=== PATIENT | female | born 1975 | race Caucasian/White ===

== ENCOUNTER → 2017-03-23 | Outpatient (CLI) | payer OTHER ==
[~2017-03-23] VITALS: Ht 152.4 cm; Wt 68.0 kg
[~2017-03-23] MED LIST: CATAFLAM50 MG PO; FENOFIBRATE160 MG PO; FLONASE16 GM NS; GILTUSS TR TAB1 EACH PO; INTESTINEX680 MG PO; LISINOPRIL-HCT1 EAC2 PO; LISINOPRIL-HCTZ1 T13; LISINOPRIL-HCTZ1 T13 PO; LISINOPRIL10 MG; PEPCID20 MG PO; SINGULAIR10 MG; SYNTHROID112 MCG PO; SYNTHROID125 MCG; SYNTHROID125 MCG PO; SYNTHROID50 MCG PO; URETRON DS1 TAB PO; VASOTEC10 MG NGT; VOLTAREM 50 MG PO; ZITHROMAX TRI-500 MG PO; ZYRTEC10 MG PO
== END | disposition home or self-care (01) ==
LOC: PPHC 14:55
DX: R51 Headache (principal)

== ENCOUNTER → 2017-05-30 | Outpatient (CLI) | payer OTHER | END | disposition home or self-care (01) | LOC: PPHC 15:16 | DX: Z76.0 Encounter for issue of repeat prescription (principal); Z00.8 Encounter for other general examination ==

== ENCOUNTER 2017-05-31 06:33 | Outpatient (CLI) | payer OTHER | END 2017-05-31 06:41 | disposition home or self-care (01) | LOC: LAB 06:33 | DX: I10 Essential (primary) hypertension (principal); E78.5 Hyperlipidemia, unspecified; R42 Dizziness and giddiness ==

== ENCOUNTER 2017-07-16 18:22 | Emergency (ER) | payer OTHER ==
[~2017-07-16] VITALS: Ht 157.5 cm; Wt 72.6 kg
== END 2017-07-16 21:49 | disposition home or self-care (01) ==
LOC: ER 18:22
DX: B34.9 Viral infection, unspecified (principal)

== ENCOUNTER 2017-09-01 15:01 | Outpatient (CLI) | payer OTHER | END 2017-09-01 15:07 | disposition home or self-care (01) | LOC: MAMO-SONO 15:01 | DX: N60.11 Diffuse cystic mastopathy of right breast (principal); N60.12 Diffuse cystic mastopathy of left breast; Z12.31 Encounter for screening mammogram for malignant neoplasm of breast ==

== ENCOUNTER 2017-09-19 11:26 | Outpatient (CLI) | payer OTHER | END 2017-09-19 11:39 | disposition home or self-care (01) | LOC: SONOGRAMA 11:26 | DX: N60.11 Diffuse cystic mastopathy of right breast (principal); N60.12 Diffuse cystic mastopathy of left breast ==

== ENCOUNTER 2017-10-06 09:47 | Outpatient (CLI) | payer OTHER | END 2017-10-06 12:06 | disposition home or self-care (01) | LOC: SONOGRAMA 09:47 | DX: N60.11 Diffuse cystic mastopathy of right breast (principal); N60.21 Fibroadenosis of right breast ==

== ENCOUNTER → 2017-10-27 07:27 | Outpatient (CLI) | payer OTHER | END | disposition home or self-care (01) | LOC: LAB 07:27 | DX: E03.8 Other specified hypothyroidism (principal); Z13.1 Encounter for screening for diabetes mellitus; Z12.11 Encounter for screening for malignant neoplasm of colon; I10 Essential (primary) hypertension ==

== ENCOUNTER → 2017-10-30 07:41 | Outpatient (CLI) | payer OTHER | END | disposition home or self-care (01) | LOC: LAB 07:41 | DX: E03.8 Other specified hypothyroidism (principal); Z13.1 Encounter for screening for diabetes mellitus; Z12.11 Encounter for screening for malignant neoplasm of colon; I10 Essential (primary) hypertension ==

== ENCOUNTER 2018-01-27 08:01 | Outpatient (CLI) | payer OTHER | END 2018-01-27 08:08 | disposition home or self-care (01) | LOC: LAB 08:01 | DX: E11.9 Type 2 diabetes mellitus without complications (principal); D64.89 Other specified anemias ==

== ENCOUNTER 2018-01-27 08:27 | Outpatient (CLI) | payer OTHER | END 2018-01-27 08:37 | disposition home or self-care (01) | LOC: SONOGRAMA 08:27 → MAMO-SONO 09:15 | DX: E03.8 Other specified hypothyroidism (principal) ==

== ENCOUNTER 2018-02-08 12:09 | Outpatient (CLI) | payer OTHER | END 2018-02-08 12:15 | disposition home or self-care (01) | LOC: LAB 12:09 | DX: J11.1 Influenza due to unidentified influenza virus with other respiratory manifestations (principal); J06.9 Acute upper respiratory infection, unspecified ==

== ENCOUNTER → 2018-04-03 08:56 | Outpatient (CLI) | payer OTHER | END | disposition home or self-care (01) | LOC: LAB 06:57 | DX: E03.8 Other specified hypothyroidism (principal); I10 Essential (primary) hypertension; E11.9 Type 2 diabetes mellitus without complications ==

== ENCOUNTER 2018-08-09 09:26 | Outpatient (CLI) | payer OTHER | END 2018-08-09 12:53 | disposition home or self-care (01) | LOC: LAB 09:26 | DX: Z01.812 Encounter for preprocedural laboratory examination (principal) ==

== ENCOUNTER → 2018-09-26 | Outpatient (CLI) | payer OTHER | END | disposition home or self-care (01) | LOC: MAMO-SONO 11:36 | DX: Z12.31 Encounter for screening mammogram for malignant neoplasm of breast (principal); Z87.898 Personal history of other specified conditions; N60.11 Diffuse cystic mastopathy of right breast; N60.12 Diffuse cystic mastopathy of left breast; N64.4 Mastodynia ==

== ENCOUNTER 2018-10-04 12:11 | Outpatient (CLI) | payer OTHER | END 2018-10-04 12:21 | disposition home or self-care (01) | LOC: LAB 12:11 | DX: Z01.812 Encounter for preprocedural laboratory examination (principal) ==

== ENCOUNTER → 2018-10-08 11:37 | Outpatient (CLI) | payer OTHER | END | disposition home or self-care (01) | LOC: LAB 11:37 | DX: J11.1 Influenza due to unidentified influenza virus with other respiratory manifestations (principal); A43.8 Other forms of nocardiosis ==

== ENCOUNTER 2018-11-29 13:24 | Outpatient (CLI) | payer OTHER | END 2018-11-29 13:30 | disposition home or self-care (01) | LOC: LAB 13:24 | DX: Z01.812 Encounter for preprocedural laboratory examination (principal) ==

== ENCOUNTER 2018-12-21 12:25 | Outpatient (CLI) | payer OTHER | END 2018-12-21 14:52 | disposition home or self-care (01) | LOC: LAB 12:25 | DX: J11.1 Influenza due to unidentified influenza virus with other respiratory manifestations (principal) ==

== ENCOUNTER 2019-04-08 13:26 | Outpatient (CLI) | payer OTHER | END 2019-04-08 13:37 | disposition home or self-care (01) | LOC: LAB 13:26 | DX: J11.1 Influenza due to unidentified influenza virus with other respiratory manifestations (principal) ==

== ENCOUNTER 2019-04-19 07:38 | Outpatient (CLI) | payer OTHER | END 2019-04-19 09:37 | disposition home or self-care (01) | LOC: LAB 07:38 | DX: R10.84 Generalized abdominal pain (principal); Z00.00 Encounter for general adult medical examination without abnormal findings; E78.49 Other hyperlipidemia; E55.9 Vitamin D deficiency, unspecified; R42 Dizziness and giddiness; N39.0 Urinary tract infection, site not specified; I10 Essential (primary) hypertension; E03.8 Other specified hypothyroidism; E11.319 Type 2 diabetes mellitus with unspecified diabetic retinopathy without macular edema ==

== ENCOUNTER → 2019-04-25 14:58 | Outpatient (CLI) | payer OTHER | END | disposition home or self-care (01) | LOC: LAB 14:58 | DX: J11.1 Influenza due to unidentified influenza virus with other respiratory manifestations (principal); R05 Cough ==

== ENCOUNTER 2019-07-12 12:22 | Outpatient (CLI) | payer OTHER | END 2019-07-12 12:45 | disposition home or self-care (01) | LOC: LAB 12:22 | PROVIDERS: ATTEND General Practice | DX: R05 Cough (principal); J00 Acute nasopharyngitis [common cold]; E86.0 Dehydration; R50.9 Fever, unspecified; R19.5 Other fecal abnormalities ==

== ENCOUNTER 2019-07-19 07:26 | Outpatient (CLI) | payer OTHER | END 2019-07-19 15:27 | disposition home or self-care (01) | LOC: LAB 07:26 | PROVIDERS: ATTEND Specialist | DX: D50.8 Other iron deficiency anemias (principal); E03.8 Other specified hypothyroidism; E78.3 Hyperchylomicronemia ==

== ENCOUNTER 2019-07-23 14:15 | Outpatient (CLI) | payer OTHER | END 2019-07-23 14:16 | disposition home or self-care (01) | LOC: MAMO-SONO 14:15 | PROVIDERS: ATTEND Specialist | DX: Z12.31 Encounter for screening mammogram for malignant neoplasm of breast (principal); N60.11 Diffuse cystic mastopathy of right breast; N60.12 Diffuse cystic mastopathy of left breast ==

== ENCOUNTER 2019-09-01 03:24 | Emergency (ER) | payer OTHER ==
[~2019-09-01] VITALS: Ht 157.5 cm; Wt 71.2 kg
[2019-09-01] MEDS ORDERED: ZITHROMAX500 MG PO (07:21)
[2019-09-01] MEDS ORDERED: IBU600 MG PO (07:21)
[2019-09-01] MEDS ORDERED: PEPCID AC20 MG PO (07:21)
== END 2019-09-01 08:15 | disposition home or self-care (01) ==
LOC: ER 03:24
DX: J35.01 Chronic tonsillitis (principal); D50.9 Iron deficiency anemia, unspecified

== ENCOUNTER 2019-10-02 12:20 | Outpatient (CLI) | payer OTHER ==
[~2019-10-02 12:20] MED LIST changes: +IBU600 MG PO; +PEPCID AC20 MG PO; +ZITHROMAX500 MG PO
== END 2019-10-02 15:58 | disposition home or self-care (01) ==
LOC: LAB 12:20
DX: Z01.812 Encounter for preprocedural laboratory examination (principal)

== ENCOUNTER → 2019-10-30 07:14 | Outpatient (CLI) | payer OTHER | END | disposition home or self-care (01) | LOC: LAB 07:14 | PROVIDERS: ATTEND Internal Medicine | DX: E03.8 Other specified hypothyroidism (principal); I10 Essential (primary) hypertension; M54.5 Low back pain; Z01.810 Encounter for preprocedural cardiovascular examination; E78.89 Other lipoprotein metabolism disorders; E11.51 Type 2 diabetes mellitus with diabetic peripheral angiopathy without gangrene; E55.9 Vitamin D deficiency, unspecified; E66.8 Other obesity; M89.8X8 Other specified disorders of bone, other site ==

== ENCOUNTER 2019-10-30 10:50 | Outpatient (CLI) | payer OTHER | END 2019-10-30 13:33 | disposition home or self-care (01) | LOC: SONOGRAMA 10:50 | PROVIDERS: ATTEND Internal Medicine | DX: E03.8 Other specified hypothyroidism (principal); I10 Essential (primary) hypertension; M54.5 Low back pain; Z01.810 Encounter for preprocedural cardiovascular examination; E78.89 Other lipoprotein metabolism disorders; E11.51 Type 2 diabetes mellitus with diabetic peripheral angiopathy without gangrene; E55.9 Vitamin D deficiency, unspecified; E11.9 Type 2 diabetes mellitus without complications; E66.8 Other obesity; M89.8X8 Other specified disorders of bone, other site ==

== ENCOUNTER 2019-11-01 20:00 | Outpatient (CLI) | payer OTHER | END 2019-11-01 20:01 | disposition home or self-care (01) | LOC: PPH VACUNA 20:00 | DX: Z23 Encounter for immunization (principal) ==

== ENCOUNTER 2020-03-03 07:43 | Outpatient (CLI) | payer OTHER | END 2020-03-03 07:49 | disposition home or self-care (01) | LOC: LAB 07:43 | PROVIDERS: ATTEND Internal Medicine | DX: I10 Essential (primary) hypertension (principal); M54.5 Low back pain; E03.8 Other specified hypothyroidism; E78.89 Other lipoprotein metabolism disorders; E11.51 Type 2 diabetes mellitus with diabetic peripheral angiopathy without gangrene; E55.9 Vitamin D deficiency, unspecified; E66.8 Other obesity ==

== ENCOUNTER 2020-08-14 18:05 | Emergency (ER) | payer OTHER ==
[~2020-08-14] VITALS: Ht 157.5 cm; Wt 71.2 kg
[2020-08-14] MEDS ORDERED: SYNTHROID100 MCG (19:03)
[2020-08-14] MEDS ORDERED: GLIMEPIRIDE4 M1 (19:04)
[2020-08-14] MEDS ORDERED: IRON325 MG PO (22:32)
[2020-08-14] MEDS ORDERED: STOOL SOFTENER50 MG PO (22:32)
== END 2020-08-14 23:04 | disposition home or self-care (01) ==
LOC: ER 18:05
DX: D64.9 Anemia, unspecified (principal); R13.19 Other dysphagia; R51.9 Headache, unspecified

== ENCOUNTER 2020-09-22 09:24 | Outpatient (CLI) | payer OTHER ==
[~2020-09-22 09:24] MED LIST changes: +GLIMEPIRIDE4 M1; +IRON325 MG PO; +STOOL SOFTENER50 MG PO; +SYNTHROID100 MCG
== END 2020-09-22 12:03 | disposition home or self-care (01) ==
LOC: LAB 09:24
DX: D64.89 Other specified anemias (principal)

== ENCOUNTER 2020-09-23 12:15 | Outpatient (CLI) | payer OTHER | END 2020-09-23 12:16 | disposition home or self-care (01) | LOC: MAMO-SONO 12:15 | PROVIDERS: ATTEND Surgery | DX: N60.11 Diffuse cystic mastopathy of right breast (principal); N60.12 Diffuse cystic mastopathy of left breast ==

== ENCOUNTER 2020-10-09 10:18 | Outpatient (CLI) | payer OTHER | END 2020-10-09 10:23 | disposition home or self-care (01) | LOC: SONOGRAMA 10:18 | PROVIDERS: ATTEND Surgery | DX: D24.2 Benign neoplasm of left breast (principal); N60.11 Diffuse cystic mastopathy of right breast; N60.12 Diffuse cystic mastopathy of left breast ==

== ENCOUNTER 2020-12-25 08:00 | Outpatient (CLI) | payer OTHER | END 2020-12-25 08:30 | disposition home or self-care (01) | LOC: PPH VACUNA 08:00 | PROVIDERS: ATTEND Emergency Medicine Pediatric Emergency Medicine | DX: Z23 Encounter for immunization (principal) ==

== ENCOUNTER 2021-02-26 09:00 | Outpatient (CLI) | payer OTHER | END 2021-02-26 09:15 | disposition home or self-care (01) | LOC: PPH VACUNA 09:00 | PROVIDERS: ATTEND Emergency Medicine Pediatric Emergency Medicine | DX: Z23 Encounter for immunization (principal) ==

== ENCOUNTER 2021-05-10 10:05 | Outpatient (CLI) | payer OTHER | END 2021-05-10 10:07 | disposition home or self-care (01) | LOC: RAD 10:05 | PROVIDERS: ATTEND Internal Medicine Pulmonary Disease | DX: J45.20 Mild intermittent asthma, uncomplicated (principal) ==

== ENCOUNTER 2021-05-10 10:23 | Outpatient (CLI) | payer OTHER | END 2021-05-10 11:19 | disposition home or self-care (01) | LOC: LAB 10:23 | PROVIDERS: ATTEND Internal Medicine Pulmonary Disease | DX: Z03.818 Encounter for observation for suspected exposure to other biological agents ruled out (principal) ==

== ENCOUNTER 2021-06-04 15:34 | Emergency (ER) | payer OTHER ==
[~2021-06-04] VITALS: Ht 157.5 cm; Wt 72.6 kg
== END 2021-06-04 19:01 | disposition home or self-care (01) ==
LOC: ER 15:34
DX: O07.1 Delayed or excessive hemorrhage following failed attempted termination of pregnancy (principal)

== ENCOUNTER 2021-06-11 14:57 | Outpatient (CLI) | payer OTHER | END 2021-06-11 15:09 | disposition home or self-care (01) | LOC: SONOGRAMA 14:57 | PROVIDERS: ATTEND Surgery | DX: N60.11 Diffuse cystic mastopathy of right breast (principal); N60.12 Diffuse cystic mastopathy of left breast ==

== ENCOUNTER 2021-11-19 11:12 | Outpatient (CLI) | payer OTHER | END 2021-11-19 11:13 | disposition home or self-care (01) | LOC: PPH VACUNA 11:12 | PROVIDERS: ATTEND Emergency Medicine Pediatric Emergency Medicine | DX: Z23 Encounter for immunization (principal) ==

== ENCOUNTER → 2021-11-29 | Emergency (ER) | payer OTHER ==
[~2021-11-29] VITALS: Ht 157.5 cm; Wt 70.8 kg
== END | disposition home or self-care (01) ==
LOC: ER 09:36
DX: B34.8 Other viral infections of unspecified site (principal); Z20.828 Contact with and (suspected) exposure to other viral communicable diseases

== ENCOUNTER 2022-04-20 14:42 | Outpatient (CLI) | payer OTHER | END 2022-04-20 15:20 | disposition home or self-care (01) | LOC: SONOGRAMA 14:42 | PROVIDERS: ATTEND Specialist | DX: N92.0 Excessive and frequent menstruation with regular cycle (principal) ==

== ENCOUNTER 2022-05-17 10:39 | Outpatient (CLI) | payer OTHER | END 2022-05-17 10:53 | disposition home or self-care (01) | LOC: LAB 10:39 | PROVIDERS: ATTEND General Practice | DX: R05.8 Other specified cough (principal); R06.02 Shortness of breath; R50.9 Fever, unspecified; Z20.822 Contact with and (suspected) exposure to COVID-19 ==

== ENCOUNTER → 2022-06-30 06:34 | Outpatient (CLI) | payer OTHER | END | disposition home or self-care (01) | LOC: LAB 06:34 | PROVIDERS: ATTEND Internal Medicine Hematology & Oncology | DX: D50.0 Iron deficiency anemia secondary to blood loss (chronic) (principal); D50.8 Other iron deficiency anemias; K29.40 Chronic atrophic gastritis without bleeding; K90.0 Celiac disease; E03.8 Other specified hypothyroidism ==

== ENCOUNTER → 2022-07-01 06:50 | Outpatient (CLI) | payer OTHER | END | disposition home or self-care (01) | LOC: LAB 06:50 | PROVIDERS: ATTEND Internal Medicine Hematology & Oncology | DX: D50.0 Iron deficiency anemia secondary to blood loss (chronic) (principal); D50.8 Other iron deficiency anemias; K29.40 Chronic atrophic gastritis without bleeding; K90.0 Celiac disease ==

== ENCOUNTER 2022-07-21 08:54 | Outpatient (CLI) | payer OTHER | END 2022-07-21 09:00 | disposition home or self-care (01) | LOC: LAB 08:54 | PROVIDERS: ATTEND General Practice | DX: R05.9 Cough, unspecified (principal); R50.9 Fever, unspecified; R06.02 Shortness of breath; Z20.822 Contact with and (suspected) exposure to COVID-19 ==

== ENCOUNTER 2022-08-30 07:25 | Outpatient (CLI) | payer OTHER | END 2022-08-30 07:34 | disposition home or self-care (01) | LOC: LAB 07:25 | PROVIDERS: ATTEND Internal Medicine Hematology & Oncology | DX: D50.0 Iron deficiency anemia secondary to blood loss (chronic) (principal); E03.8 Other specified hypothyroidism ==

== ENCOUNTER → 2022-10-21 | Outpatient (CLI) | payer OTHER | END | disposition home or self-care (01) | LOC: PPH VACUNA 10-13 14:48 | PROVIDERS: ATTEND Emergency Medicine Pediatric Emergency Medicine | DX: Z23 Encounter for immunization (principal) ==

== ENCOUNTER → 2022-12-07 06:40 | Outpatient (CLI) | payer OTHER ==
[2022-12-07 08:06] LABS: HEMOGLOBIN 10.2 g/dL (12.0-15.00); MEAN CELL VOLUME 72.2 fL (80.00-100.00); MEAN CORPUSCULAR HEMOGLOBIN 22.9 pg (27.00-32.0); MEAN CORPUSCULAR HGB CONC 31.8 g/dl (32.0-36.0); PLATELET COUNT 322 K/uL (150-450); RED BLOOD COUNT 4.44 M/uL (4.00-6.00); RED CELL DISTRIBUTION WIDTH 17.6 % (11.5-14.5)
[2022-12-07 08:35] LABS: FERRITIN 8.6 NG/ML (8-252); FREE TRIODOTIRONINE 2.07 pg/ml (2.18-3.98); T4 FREE 1.16 NG/ML (0.76-1.46); TSH 2.93 uIU/mL (0.358-3.74)
== END | disposition home or self-care (01) ==
LOC: LAB 06:40
PROVIDERS: ATTEND Internal Medicine Hematology & Oncology
DX: D50.8 Other iron deficiency anemias (principal); E03.8 Other specified hypothyroidism

== ENCOUNTER 2022-12-07 07:15 | Outpatient (CLI) | payer OTHER | END 2022-12-07 07:17 | disposition home or self-care (01) | LOC: MAMO-SONO 07:15 | PROVIDERS: ATTEND Surgery | DX: Z12.31 Encounter for screening mammogram for malignant neoplasm of breast (principal); N60.11 Diffuse cystic mastopathy of right breast ==

== ENCOUNTER → 2023-01-25 08:24 | Outpatient (CLI) | payer OTHER ==
[2023-01-25 09:31] LABS: URINE APPEARANCE Clear; URINE BILIRRUBIN Negative (NEGATIVE); URINE BLOOD Negative; URINE COLOR Yellow; URINE LEUKOCYTE Negative; URINE NITRATE Negative; URINE PROTEIN Negative (NEGATIVE); URINE UROBILINOGEN 0.2 E.U./dl
[2023-01-25 09:37] LABS: URINE BACTERIA 191.3 uL (0.0-1933); URINE EPITHELIAL CELLS 13.5 uL (0.0-38.8); URINE WBC 5.7 uL (0.0-23.2)
[2023-01-25 09:38] LABS: HEMATOCRIT 32.8 % (36.0-45.00); HEMOGLOBIN 10.3 g/dL (12.0-15.00); MEAN CELL VOLUME 70.5 fL (80.00-100.00); MEAN CORPUSCULAR HEMOGLOBIN 22.2 pg (27.00-32.0); MEAN CORPUSCULAR HGB CONC 31.5 g/dl (32.0-36.0); PLATELET COUNT 284 K/uL (150-450); RED BLOOD COUNT 4.66 M/uL (4.00-6.00); RED CELL DISTRIBUTION WIDTH 16.6 % (11.5-14.5)
[2023-01-25 09:50] LABS: URINE GLUCOSE 100 MG/DL (NEGATIVE)
[2023-01-25 10:36] LABS: ALBUMIN 3.5 gm/dL (3.4-5.0); ALKALINE PHOSPHATASE 40 U/L (50-136); ALT/SGPT 28 U/L (12-78); ANION GAP 11 (10.0-20.0); AST/SGOT 26 U/L (15-37); BILIRUBIN TOTAL 0.43 mg/dL (0.3-1.2); BILIRUBIN,CONJUGATED < 0.10 mg/dL (0.0-0.2); BILIRUBIN,UNCONJUGATED 0.33 mg/dL (0.0-0.6); BLOOD UREA NITROGEN 8 mg/dL (7-18); BUN CREA RATIO 14 (7.0-25.0); CALCIUM 9.2 mg/dL (8.5-10.1); CARBON DIOXIDE 27 mEq/L (21-32); CHLORIDE 98 mmol/L (98-107); CREATININE SERUM 0.59 mg/dL (0.55-1.02); GFR 109.25; HDL 40 mg/dl (40-60); SODIUM 133 mmol/L (136-145); T3 UPTAKE 31 % (30-39); TOTAL PROTEIN 7.5 gm/dL (6.4-8.2)
[2023-01-25 10:38] LABS: CHOL HDL RATIO 7.5 (0-5.0); CHOLESTEROL 299 mg/dL (0-200); GLUCOSE FASTING 264 mg/dL (65-100); LDL 52 mg/dl (0-130); OSMOLALITY SERUM 274 MOSM/KG (275-295); TRIGLYCERIDES 1037 mg/dL (0-150); VLDL 207 (0-39)
[2023-01-25 14:37] LABS: T3 TOTAL 0.937 ng/ml (0.846-2.02); VITAMIN D3 25 HYDROXY 15.67 ng/ml (30-120)
== END | disposition home or self-care (01) ==
LOC: LAB 08:24
PROVIDERS: ATTEND General Practice
DX: E78.5 Hyperlipidemia, unspecified (principal); Z00.00 Encounter for general adult medical examination without abnormal findings; E55.9 Vitamin D deficiency, unspecified; N39.0 Urinary tract infection, site not specified; R42 Dizziness and giddiness; R10.2 Pelvic and perineal pain; R10.9 Unspecified abdominal pain

== ENCOUNTER 2023-04-24 15:43 | Outpatient (CLI) | payer OTHER ==
[2023-04-24 16:39] LABS: HEMATOCRIT 34.4 % (36.0-45.00); HEMOGLOBIN 10.9 g/dL (12.0-15.00); MEAN CELL VOLUME 77.2 fL (80.00-100.00); MEAN CORPUSCULAR HEMOGLOBIN 24.5 pg (27.00-32.0); MEAN CORPUSCULAR HGB CONC 31.7 g/dl (32.0-36.0); PLATELET COUNT 338 K/uL (150-450); RED BLOOD COUNT 4.46 M/uL (4.00-6.00)
[2023-04-24 16:48] LABS: FERRITIN 106.5 NG/ML (8-252)
== END 2023-04-24 23:00 | disposition home or self-care (01) ==
LOC: LAB 15:43
PROVIDERS: ATTEND Internal Medicine Hematology & Oncology
DX: D50.0 Iron deficiency anemia secondary to blood loss (chronic) (principal); D63.8 Anemia in other chronic diseases classified elsewhere; D63.0 Anemia in neoplastic disease; D50.8 Other iron deficiency anemias

== ENCOUNTER 2023-08-23 13:52 | Emergency (ER) | payer OTHER ==
[~2023-08-23] VITALS: Ht 157.5 cm; Wt 70.8 kg
[2023-08-23] MEDS ORDERED: KETOROLAC TROMETHAMINE 60 MG VIAL IM STA (16:50)
[2023-08-23] MEDS ORDERED: DEXAMETHASONE SODIUM PHOSPHATE 4 MG/ML VIAL IM STA (16:50)
[2023-08-23] MEDS ORDERED: ACETAMINOPHEN 500 MG GEL..CAP PO STA (16:51)
== END 2023-08-23 17:33 | disposition home or self-care (01) ==
LOC: ER 13:53
DX: R51.9 Headache, unspecified (principal)

== ENCOUNTER 2023-10-30 07:02 | Outpatient (CLI) | payer OTHER ==
[2023-10-30 09:09] LABS: ALBUMIN 3.5 gm/dL (3.4-5.0); BILIRUBIN TOTAL 0.19 mg/dL (0.3-1.2); CREATININE SERUM 0.52 mg/dL (0.55-1.02); GFR 125.86; GLOBULINA 3.5 G/DL (2.4-3.5); POTASSIUM 3.99 mEq/L (3.5-5.1); T4 FREE 1.15 NG/ML (0.76-1.46); TSH 0.38 uIU/mL (0.358-3.74)
[2023-10-30 10:09] LABS: PH,URINE 5.5 (5.0-8.0); URINE APPEARANCE Cloudy; URINE BILIRRUBIN Negative (NEGATIVE); URINE BLOOD Negative; URINE COLOR Yellow; URINE KETONE Trace (NEGATIVE); URINE LEUKOCYTE Negative; URINE NITRATE Negative; URINE PROTEIN Trace (NEGATIVE); URINE UROBILINOGEN 0.2 E.U./dl
[2023-10-30 10:15] LABS: URINE BACTERIA 2971.8 uL (0.0-1933); URINE EPITHELIAL CELLS 55.6 uL (0.0-38.8); URINE WBC 18.3 uL (0.0-23.2)
[2023-10-30 10:56] LABS: URINE GLUCOSE >=1000 MG/DL (NEGATIVE)
[2023-10-30 10:58] LABS: URINE YEAST NEGATIVE /hpf
== END 2023-10-30 07:03 | disposition home or self-care (01) ==
LOC: LAB 07:02
PROVIDERS: ATTEND Internal Medicine Endocrinology, Diabetes & Metabolism
DX: E11.65 Type 2 diabetes mellitus with hyperglycemia (principal); E03.8 Other specified hypothyroidism; E78.00 Pure hypercholesterolemia, unspecified

== ENCOUNTER 2023-11-29 23:27 | Emergency (ER) | payer OTHER ==
[~2023-11-29] VITALS: Ht 157.5 cm; Wt 69.9 kg
[2023-11-29 23:31] VITALS: BP 149/84; O2SAT 98
[2023-11-29] MEDS ORDERED: METFORMIN HCL1000 M2 (23:31)
[2023-11-29] MEDS ORDERED: GLIPIZIDE XL5 MG (23:31)
[2023-11-30] MEDS ORDERED: KETOROLAC TROMETHAMINE 60 MG VIAL IM STA (03:03)
[2023-11-30] MEDS ORDERED: ORPHENADRINE CITRATE 30 MG/ML AMPUL IM STA (03:04)
[2023-11-30] MEDS ORDERED: NORFLEX100MG PO (03:15)
[2023-11-30] MEDS ORDERED: KETO10TA2 PO (03:15)
== END 2023-11-30 03:22 ==
LOC: ER 23:28
DX: M62.838 Other muscle spasm (principal); I10 Essential (primary) hypertension; E11.9 Type 2 diabetes mellitus without complications; Z79.84 Long term (current) use of oral hypoglycemic drugs

== ENCOUNTER → 2023-12-05 | Outpatient (CLI) | payer OTHER ==
[~2023-12-05] MED LIST changes: +DICLOFENAC POTA50 MG PO; +GLIPIZIDE XL5 MG; +KETO10TA2 PO; +METFORMIN HCL1000 M2; +NORFLEX100MG PO
== END | disposition home or self-care (01) ==
LOC: MAMO-SONO 11:53
PROVIDERS: ATTEND Surgery
DX: N60.11 Diffuse cystic mastopathy of right breast (principal); N60.12 Diffuse cystic mastopathy of left breast

== ENCOUNTER 2023-12-06 14:42 | Outpatient (CLI) | payer OTHER ==
[~2023-12-06 14:42] MED LIST changes: -DICLOFENAC POTA50 MG PO
== END 2023-12-06 14:50 | disposition home or self-care (01) ==
LOC: MAMO-SONO 14:42
PROVIDERS: ATTEND Surgery
DX: N60.11 Diffuse cystic mastopathy of right breast (principal); N60.12 Diffuse cystic mastopathy of left breast

== ENCOUNTER 2023-12-12 09:00 | Outpatient (CLI) | payer OTHER ==
[~2023-12-12 09:00] MED LIST changes: +DICLOFENAC POTA50 MG PO
== END 2023-12-12 10:00 | disposition home or self-care (01) ==
LOC: PPH VACUNA 09:00
PROVIDERS: ATTEND Emergency Medicine Pediatric Emergency Medicine
DX: Z23 Encounter for immunization (principal)

== ENCOUNTER 2024-04-12 09:02 | Emergency (ER) | payer OTHER ==
[~2024-04-12] VITALS: Ht 157.5 cm; Wt 67.1 kg
[2024-04-12] MEDS ORDERED: 0.9 % SODIUM CHLORIDE 1,000 ML IV STA (09:38)
[2024-04-12 10:21] LABS: HEMATOCRIT 29.4 % (36.0-45.00); MEAN CORPUSCULAR HGB CONC 30.3 g/dl (32.0-36.0); PLATELET COUNT 382 K/uL (150-450); RED BLOOD COUNT 4.32 M/uL (4.00-6.00)
[2024-04-12 10:22] LABS: HEMOGLOBIN 8.9 g/dL (12.0-15.00); MEAN CELL VOLUME 67.9 fL (80.00-100.00); MEAN CORPUSCULAR HEMOGLOBIN 20.6 pg (27.00-32.0)
[2024-04-12 10:50] LABS: CALCIUM 9.8 mg/dL (8.5-10.1); CREATININE SERUM 0.65 mg/dL (0.55-1.02); GFR 96.88; POTASSIUM 3.76 mEq/L (3.5-5.1)
== END 2024-04-12 15:36 | disposition home or self-care (01) ==
LOC: ER 09:04
PROVIDERS: Emergency Medicine
DX: K52.89 Other specified noninfective gastroenteritis and colitis (principal); E03.8 Other specified hypothyroidism; E11.65 Type 2 diabetes mellitus with hyperglycemia; Z79.84 Long term (current) use of oral hypoglycemic drugs; Z20.822 Contact with and (suspected) exposure to COVID-19

== ENCOUNTER 2024-07-29 13:36 | Outpatient (CLI) | payer OTHER ==
[2024-07-31 05:07] LABS: HEPATITIS A ANTIBODY IGG Negative (Negative); HEPATITIS B SURFACE ANTIBODY Non Reactive (.); HEPATITIS C VIRUS ANTIBODY Non Reactive (Non Reactive)
== END 2024-07-29 13:39 | disposition home or self-care (01) ==
LOC: LAB 13:36
DX: A64 Unspecified sexually transmitted disease (principal); B19.9 Unspecified viral hepatitis without hepatic coma